=== PATIENT | male | born 1945 | race Caucasian/White ===

== ENCOUNTER 2023-01-22 11:11 | Day surgery (SDC) | payer MEDICARE, MEDICAID ==
[~2023-01-22] VITALS: Ht 175.3 cm; Wt 67.0 kg
[2023-01-22] MEDS ORDERED: normal saline 1000ml 1,000 ML IV PRN (11:35)
[2023-01-22 11:51] VITALS: BP 136/87; PULSE 58; RESP 16; TEMP 98.5; O2SAT 98
[2023-01-22] MEDS ORDERED: ERGO500093 PO (11:54)
[2023-01-22] MEDS ORDERED: AMIT50TA15 PO (11:54)
[2023-01-22] MEDS ORDERED: UMEC62.5 (11:54)
[2023-01-22] MEDS ORDERED: AMLO-708 PO (11:54)
[2023-01-22] MEDS ORDERED: ALBU18HF2 (11:54)
[2023-01-22] MEDS ORDERED: METO50TA16 PO (11:54)
[2023-01-22] MEDS ORDERED: ONDA-104 PO (11:54)
[2023-01-22] MEDS ORDERED: FURO40TA4 PO (11:54)
[2023-01-22] MEDS ORDERED: ZINC 50 MG (11:56)
[2023-01-22] MEDS ORDERED: MULT-1085 PO (11:56)
[2023-01-22 12:00] VITALS: RESP 16; O2SAT 98
[2023-01-22] MEDS ORDERED: fentaNYL/PF 50MCG/1 ML 2ML syringe ONE (13:10)
[2023-01-22] MEDS ORDERED: heparin 1,000unit/ml 10ml vial 10 ML ONE (13:10)
[2023-01-22] MEDS ORDERED: midazolam 1 mg/ML 2ml injection ONE (13:10)
[2023-01-22] MEDS ORDERED: diphenhydrAMINE 50 mg/ml inj ONE (13:33)
[2023-01-22 14:15] VITALS: BP 156/86; PULSE 72; RESP 14; O2SAT 97
[2023-01-22 14:30] VITALS: BP 151/88; PULSE 72; RESP 14; O2SAT 99
[2023-01-22 14:45] VITALS: BP 136/86; PULSE 70; RESP 14; O2SAT 99
[2023-01-22 14:55] VITALS: BP 148/85; PULSE 74; RESP 15; O2SAT 98
== END 2023-01-22 14:55 | disposition home or self-care (01) ==
LOC: SSTAY O 11:11
PROVIDERS: ATTEND Radiology Vascular & Interventional Radiology
DX: T82.7XXA Infection and inflammatory reaction due to other cardiac and vascular devices, implants and grafts, initial encounter (principal); N18.6 End stage renal disease; Y83.8 Other surgical procedures as the cause of abnormal reaction of the patient, or of later complication, without mention of misadventure at the time of the procedure; Y92.89 Other specified places as the place of occurrence of the external cause
CPT/HCPCS: 36415; 36556; 36589; 76937; 77001; 83605; 87040; 87070; C1750; J1200; J1644; J2250; J3010; J7030; A4620; C1751; C1894

== ENCOUNTER 2023-02-15 11:20 | Day surgery (SDC) | payer MEDICARE, MEDICAID ==
[~2023-02-15] VITALS: Ht 172.7 cm; Wt 66.4 kg
[~2023-02-15 11:20] MED LIST: ALBU18HF2; AMIT50TA15 PO; AMLO-708 PO; ERGO500093 PO; FURO40TA4 PO; METO50TA16 PO; MULT-1085 PO; ONDA-104 PO; UMEC62.5; ZINC 50 MG
[2023-02-15 11:45] VITALS: BP 148/86; PULSE 60; RESP 18; TEMP 98.4; O2SAT 95
[2023-02-15] MEDS ORDERED: ceFAZolin inj. 2,000 MG in dextrose 5%-water 100 ML IV ONE (12:00)
[2023-02-15 12:14] LABS: BASOPHILS # (AUTO) 0.1 X10'3 (0-0.2); EOSINOPHILS # (AUTO) 1.1 X10'3 (0-0.9); EOSINOPHILS % (AUTO) 11.5 % (0-6); HEMATOCRIT 36.4 % (42.0-52.0); HEMOGLOBIN 12.1 g/dl (14.0-17.9); LYMPHOCYTES # (AUTO) 2.3 X10'3 (1.1-4.8); LYMPHOCYTES % (AUTO) 24.5 % (21-51); MEAN CORPUSCULAR HEMOGLOBIN 31.5 PG (27.0-31.0); MEAN CORPUSCULAR HGB CONC 33.1 g/dL (33.0-36.5); MEAN CORPUSCULAR VOLUME 95.2 FL (78-98); MEAN PLATELET VOLUME 7.3 FL (7.4-10.4); MONOCYTES # (AUTO) 0.7 X10'3 (0-0.9); MONOCYTES % (AUTO) 7.2 % (2-12); NEUTROPHILS # (AUTO) 5.3 X10'3 (1.8-7.7); NEUTROPHILS % (AUTO) 55.8 % (42-75); PLATELET COUNT 208 X10'3 (140-440); RED BLOOD COUNT 3.83 X10'6 (4.70-6.10); RED CELL DISTRIBUTION WIDTH 16.5 % (11.5-14.5); WHITE BLOOD COUNT 9.5 X10'3 (4.5-11.0)
[2023-02-15] MEDS ORDERED: heparin 1,000unit/ml 10ml vial 10 ML ONE (12:22)
[2023-02-15 12:26] LABS: INR 1.1 INR; PROTHROMBIN TIME 11.3 SECONDS (9.0-12.0)
[2023-02-15] MEDS ORDERED: diphenhydrAMINE 50 mg/ml inj ONE (12:44)
[2023-02-15] MEDS ORDERED: fentaNYL/PF 50MCG/1 ML 2ML syringe ONE (12:52)
[2023-02-15 13:33] VITALS: BP 150/78; PULSE 64; RESP 15; O2SAT 98
[2023-02-15 13:45] VITALS: BP 163/74; PULSE 59; RESP 10; O2SAT 98
[2023-02-15 14:00] VITALS: BP 160/72; PULSE 59; RESP 8; O2SAT 98
[2023-02-15 14:15] VITALS: BP 161/75; PULSE 60; RESP 10; O2SAT 100
[2023-02-15 14:30] VITALS: BP 151/73; PULSE 59; RESP 14; O2SAT 99
== END 2023-02-15 14:50 | disposition home or self-care (01) ==
LOC: SSTAY O 11:20
PROVIDERS: ATTEND Radiology Vascular & Interventional Radiology
DX: Z49.01 Encounter for fitting and adjustment of extracorporeal dialysis catheter (principal); N18.6 End stage renal disease; Z79.899 Other long term (current) drug therapy
CPT/HCPCS: 36415; 36558; 36589; 76937; 77001; 85025; 85610; 99152; C1750; J1200; J1644; J3010; J7030; 76942; A9270; C1894